=== PATIENT | female | born 1965 ===

== ENCOUNTER → 2019-11-23 | Outpatient (CLI) | payer OTHER | LOC: LAB 10:35 → LAB SHORT 10:35 | DX: L08.9 Local infection of the skin and subcutaneous tissue, unspecified (principal); L73.2 Hidradenitis suppurativa; D48.5 Neoplasm of uncertain behavior of skin; L53.8 Other specified erythematous conditions; R20.8 Other disturbances of skin sensation; L91.8 Other hypertrophic disorders of the skin; L82.1 Other seborrheic keratosis; D18.01 Hemangioma of skin and subcutaneous tissue | CPT/HCPCS: 87070; 87205 ==